=== PATIENT | female | born 1995 | race African-American/Black ===

== ENCOUNTER 2017-06-04 15:13 | Inpatient (IN) | payer MEDICAID ==
[2017-06-04] VITALS (7 sets, daily range): BP systolic 106–121; BP diastolic 64–78; PULSE 86–145; RESP 18; TEMP 98.7–98.8
[2017-06-04] MEDS ORDERED: LACTATED RINGER'S 1000 ML INJ 1,000 ML IV SCH (15:20)
[2017-06-04] MEDS ORDERED: LACTATED RINGER'S 1000 ML INJ 1,000 ML IV PRN (15:20)
[2017-06-04] MEDS ORDERED: OXYTOCIN 10 UNIT/ML AMP ONE (15:24)
[2017-06-04] MEDS ORDERED: LIDOCAINE HCL 1% 50 ML VIAL INFIL PRN (15:30)
[2017-06-04] MEDS ORDERED: ONDANSETRON HCL 4 MG/2 ML VIAL IV PUSH PRN (15:30)
[2017-06-04] MEDS ORDERED: LIDOCAINE HCL 1% 50 ML VIAL I-DERMAL PRN (15:30)
[2017-06-04] MEDS ORDERED: SODIUM CHLORID 0.9% 500 ML INJ 500 ML IV PRN (15:30)
[2017-06-04] MEDS ORDERED: MINERAL OIL 10 ML VIAL TOPICAL PRN (15:30)
[2017-06-04] MEDS ORDERED: OXYTOCIN 30 UNITS-500ML PREMIX 500 ML IV ONE (15:30)
[2017-06-04] MEDS ORDERED: CITRIC ACID-SODIUM CITRATE LIQ 30 ML UDC PO SCH (15:30)
[2017-06-04] MEDS ORDERED: SODIUM CHLOR 0.9% 1000 ML INJ 1,000 ML IV PRN (15:40)
[2017-06-04] MEDS ORDERED: ALUMINUM/MAGNESIUM/SIMETH 30 ML CUP PO PRN (16:00)
[2017-06-04] MEDS ORDERED: MEASLES, MUMPS, RUBELLA VACCINE 0.5 ML VIAL SQ ONE (16:00)
[2017-06-04] MEDS ORDERED: WITCH HAZEL 50%/GLYCERIN 12.5% 40 PAD JAR TOPICAL PRN (16:00)
[2017-06-04] MEDS ORDERED: ACETAMINOPHEN 325 MG TAB PO PRN (16:00)
[2017-06-04] MEDS ORDERED: DIPHTH/TETANUS/ACEL PERTUSSIS (BOOSTER) 0.5 ML VIAL/PFS IM ONE (16:00)
[2017-06-04] MEDS ORDERED: OXYTOCIN 30 UNITS-500ML PREMIX 500 ML IV SCH (16:00)
[2017-06-04] MEDS ORDERED: ZOLPIDEM TARTRATE 5 MG TAB PO PRN (16:00)
--- NOTE | 2017-06-04 16:14 | PD.OB.DELI ---
Weeks gestation: 39 Gest age assessed date: Jun 04, 2017 Gest age assessed time: 15:45 Pt started active labor?: Yes Active labor start date: Jun 04, 2017 Active labor start time: 15:15 Medical induction of labor?: No Artificial rupture of membrane: No Anesthesia: None Episiotomy: None Vaginal Delivery: Normal, Spontaneous, Presentation: Occiput anterior, Vertex Nuchal Cord: None Delayed cord clamping (45 sec): Yes Infant: Male Delivery date: Jun 04, 2017 Delivery time: 15:22 One Minute : 8 Five Minute : 9 Weight: 3315 Placenta: Spontaneous delivery, Intact Laceration: Vaginal laceration, 2 deg Repair: Vicryl running Estimated blood loss: 200cc Additional Information 22YO at 39/1 by 1st trimester US delivered by precipitous . There were three lacerations: a 2nd degree vaginal lac at the 6 o'clock position, and bilateral periurethral lacerations at 10 and 2 o'clock positions repaired with running vicryl. Dr Longoria delivered and was supervised by Dr Tejeda. Dr Tejeda performed laceration repair and was assisted by Dr Longoria. Lidocaine 1% was injected for anesthesia and hemostasis prior to laceration repair. Positive hemostasis was achieved. EBL 200cc. (Fadi Longoria MD R1) Additional Information see residents delivery note (Rafat Tejeda MD) Fadi Longoria MD R1 Jun 04, 2017 16:13 Rafat Tejeda MD Jun 04, 2017 18:04
--- NOTE | 2017-06-04 16:32 | PD ---
HPI Chief Complaint actively laboring Date Seen: Jun 04, 2017 Time Seen: 15:30 Travel History International Travel<30 Days: No Contact w/Intl Traveler<30Days: No Known Affected Area: No History of Present Illness HPI Ms Kumar is a at 39/1 weeks by 1st trimester US who is followed by Dr Castrejon in [place] who arrived the OB ED in precipitous labor with 10/10 labor pains. Pt states her first was uncomplicated and began as IOL then ended up as a C/S, but doesn't know why C/S occurred. States this has been without complication and notes her GTT was normal as were her labs, although she takes iron supplements and is unsure why. Pt also takes PNV. Pt denies PMHx. Denies CP, N/V/D, and DVT pain; however, is acutely SOB while elizabeth. Weeks Gestation: 39 Para: 1 : 2 Miscarriage: 0 : 0 History Past Medical History Medical History: Denies Significant Hx Obstetric History Obstetric History Previous C/S after IOL at term, reason unspecified Past Surgical History Surgical History: No Previous Surgery Family History Family History: Negative Social History Alcohol Use: No Tobacco Use: No Substance Abuse: No Allergies-Medications (Allergen,Severity, Reaction): Coded Allergies: Penicillins (Verified Allergy, Severe, rash, 06/04/17) amoxicillin (Unverified Allergy, Severe, RASH, 02/02/17) Home Meds No Active Prescriptions or Reported Meds Narrative Medication PNV Iron supplement Review of Systems General / Constitutional: No: Fever, Chills Eyes: No: Visual changes HENT: No: Headaches Cardiovascular: No: Chest Pain or Discomfort, Palpitations Respiratory: No: Short of Breath Gastrointestinal: Abdominal Pain, No: Nausea, Vomiting, Diarrhea Genitourinary: Discharge, No: Urgency, Vaginal Bleeding Musculoskeletal: Cramping Skin: No Rash Neurologic: No: Weakness, Dizziness Physical Exam Narrative GENERAL: Well-nourished, well-developed patient with severe laboring pains. SKIN: Warm and dry. No rashes or lesions. HEAD: Normocephalic and atraumatic. EYES: No scleral icterus. No injection or drainage. ENT: No nasal drainage noted. Mucous membranes pink. Airway patent. NECK: Supple, trachea midline. No lymphadenopathy. CARDIOVASCULAR: Tachycardia with regular rhythm without murmur, gallop, or rub. RESPIRATORY: Breath sounds equal bilaterally. No accessory muscle use. ABDOMEN/GI: Abdomen soft, non-tender, bowel sounds present, no rebound, no guarding Gravid to 39 weeks size Fundal Height: [-] GENITOURINARY: External Genitalia: intact and normal in appearance Cervix: - Dilatation: complete Effacement: 100 Station: 0 Presentation: vtx Membranes: intact Uterine Contractions: yes, regular 2-3 minutes FHT's: Category: [-] Baseline: [-] Reactive: [-] Variability: [-] Decels: [-] EXTREMITIES: No cyanosis or edema. BACK: Nontender without obvious deformity. No CVA tenderness. NEUROLOGICAL: Awake and alert. Motor and sensory grossly within normal limits. Five out of 5 muscle strength in all muscle groups. Normal speech. Data Data Orders Orders Admit To Inpatient (06/04/17 ) Vital Signs (Adult) .Per protocol (06/04/17 15:20) Heart (06/04/17 15:20) Amnioinfusion (06/04/17 15:20) Urinary Catheter Management .ONCE (06/04/17 15:20) Lactated Ringer's 1000 Ml Inj (Lr 1000 M (06/04/17 15:20) Lactated Ringer's 1000 Ml Inj (Lr 1000 M (06/04/17 15:20) Sodium Chlorid 0.9% 500 Ml Inj (Ns 500 M (06/04/17 15:30) Sodium Chlor 0.9% 1000 Ml Inj (Ns 1000 M (06/04/17 15:40) Lidocaine 1% Inj (50 Ml) (Xylocaine 1% I (06/04/17 15:30) Citric Acid-Sodium Citrate Liq (Bicitra (06/04/17 15:30) Ondansetron Inj (Zofran Inj) (06/04/17 15:30) Fentanyl Inj (Fentanyl Inj) (06/04/17 15:30) Fentanyl Inj (Fentanyl Inj) (06/04/17 15:30) Complete Blood Count With Diff (06/04/17 15:20) Hold Clot (06/04/17 15:20) Abo/Rh Blood Type (06/04/17 15:20) Urinalysis - C+S If Indicated (06/04/17 15:20) Drug Screen, Random Urine (06/04/17 15:20) Type And Screen (06/04/17 15:20) Rapid Plasma Regin (Rpr) W Ttr (06/04/17 15:20) No Care Spec Serology (06/04/17 15:20) Resp Oxygen Non Rebreathe Mask (06/04/17 ) ^ Epidural / Intrathecal Infus (06/04/17 15:20) Oxytocin 30 Units-500ml Premix (Pitocin (06/04/17 15:30) Lidocaine 1% Inj (50 Ml) (Xylocaine 1% I (06/04/17 15:30) Light Mineral Oil (Muri-Lube Oil) (06/04/17 15:30) Inpatient Certification (06/04/17 ) Specimen To Be Collected PRN (06/04/17 15:20) Specimen To Be Collected PRN (06/04/17 15:20) Oxytocin Inj (Pitocin Inj) (06/04/17 15:24) Vital Signs (Adult) .QSHIFT (06/04/17 15:50) Activity Oob Ad Izzy (06/04/17 15:50) Ice / Cold Pack PRN (06/04/17 15:50) Discontinue Iv (06/04/17 15:50) Sitz Bath PRN (06/04/17 15:50) ^ Massage (06/04/17 15:50) ^ Rhogam (06/04/17 15:50) Urinary Catheter Management .PRN (06/04/17 15:50) Diet Regular Basic (06/04/17 Dinner) Oxytocin 30 Units-500ml Premix (Pitocin (06/04/17 16:00) Acetaminophen (Tylenol) (06/04/17 16:00) Ibuprofen (Motrin) (06/04/17 16:00) Witch Nany-Glycerin Pad (Tucks Pads) (06/04/17 16:00) Zolpidem (Ambien) (06/04/17 16:00) Aipshlk-Emzrh-Enniiwy Inj (M-M-R Ii Inj) (06/04/17 16:00) Uiyp-Vjq-Aazamo (Booster) Inj (Boostrix (06/04/17 16:00) Al-Mag Hy-Si 40-40-4 Mg/Ml Liq (Mag-Al P (06/04/17 16:00) MDM Medical Record Reviewed: No Narrative Course / MDM 22YO at 39/1 weeks by 1st trimester US ([place] 06/10/17) and followed by Dr Castrejon arrived the ED in precipitous labor Scripts No Active Prescriptions or Reported Meds Fadi Longoria MD R1 Jun 04, 2017 16:32
--- NOTE | 2017-06-04 16:51 | HHI.HP ---
History & Physical H&P HPI Chief Complaint actively laboring Date Seen: Jun 04, 2017 Time Seen: 15:30 Travel History International Travel<30 Days: No Contact w/Intl Traveler<30Days: No Known Affected Area: No History of Present Illness HPI Ms Kumar is a at 39/1 weeks by 1st trimester US who is followed by Dr Castrejon in [place] who arrived the OB ED in precipitous labor with 10/10 labor pains. Pt states her first was uncomplicated and began as IOL then ended up as a C/S, but doesn't know why C/S occurred. States this has been without complication and notes her GTT was normal as were her labs, although she takes iron supplements and is unsure why. Pt also takes PNV. Pt denies PMHx. Denies CP, N/V/D, and DVT pain; however, is acutely SOB while elizabeth. Weeks Gestation: 39 Para: 1 : 2 Miscarriage: 0 : 0 History (Limited) History Past Medical History Medical History: Denies Significant Hx Obstetric History Obstetric History Previous C/S after IOL at term, reason unspecified Past Surgical History Surgical History: No Previous Surgery Family History Family History: Negative Social History Alcohol Use: No Tobacco Use: No Substance Abuse: No Allergies-Medications Allergies-Medications (Allergen,Severity, Reaction): Coded Allergies: Penicillins (Verified Allergy, Severe, rash, 06/04/17) amoxicillin (Unverified Allergy, Severe, RASH, 02/02/17) Home Meds No Active Prescriptions or Reported Meds Narrative Medication PNV Iron supplement ROS Review of Systems General / Constitutional: No: Fever, Chills Eyes: No: Visual changes HENT: No: Headaches Cardiovascular: No: Chest Pain or Discomfort, Palpitations Respiratory: No: Short of Breath Gastrointestinal: Abdominal Pain, No: Nausea, Vomiting, Diarrhea Genitourinary: Discharge, No: Urgency, Vaginal Bleeding Musculoskeletal: Cramping Skin: No Rash Neurologic: No: Weakness, Dizziness Physical Exam Physical Exam Narrative GENERAL: Well-nourished, well-developed patient with severe laboring pains. SKIN: Warm and dry. No rashes or lesions. HEAD: Normocephalic and atraumatic. EYES: No scleral icterus. No injection or drainage. ENT: No nasal drainage noted. Mucous membranes pink. Airway patent. NECK: Supple, trachea midline. No lymphadenopathy. CARDIOVASCULAR: Tachycardia with regular rhythm without murmur, gallop, or rub. RESPIRATORY: Breath sounds equal bilaterally. No accessory muscle use. ABDOMEN/GI: Abdomen soft, non-tender, bowel sounds present, no rebound, no guarding Gravid to 39 weeks size Fundal Height: [-] GENITOURINARY: External Genitalia: intact and normal in appearance Cervix: - Dilatation: complete Effacement: 100 Station: 0 Presentation: vtx Membranes: intact Uterine Contractions: yes, regular 2-3 minutes FHT's: Category: [-] Baseline: [-] Reactive: [-] Variability: [-] Decels: [-] EXTREMITIES: No cyanosis or edema. BACK: Nontender without obvious deformity. No CVA tenderness. NEUROLOGICAL: Awake and alert. Motor and sensory grossly within normal limits. Five out of 5 muscle strength in all muscle groups. Normal speech. Data Data Data Orders Orders Admit To Inpatient (06/04/17 ) Vital Signs (Adult) .Per protocol (06/04/17 15:20) Heart (06/04/17 15:20) Amnioinfusion (06/04/17 15:20) Urinary Catheter Management .ONCE (06/04/17 15:20) Lactated Ringer's 1000 Ml Inj (Lr 1000 M (06/04/17 15:20) Lactated Ringer's 1000 Ml Inj (Lr 1000 M (06/04/17 15:20) Sodium Chlorid 0.9% 500 Ml Inj (Ns 500 M (06/04/17 15:30) Sodium Chlor 0.9% 1000 Ml Inj (Ns 1000 M (06/04/17 15:40) Lidocaine 1% Inj (50 Ml) (Xylocaine 1% I (06/04/17 15:30) Citric Acid-Sodium Citrate Liq (Bicitra (06/04/17 15:30) Ondansetron Inj (Zofran Inj) (06/04/17 15:30) Fentanyl Inj (Fentanyl Inj) (06/04/17 15:30) Fentanyl Inj (Fentanyl Inj) (06/04/17 15:30) Complete Blood Count With Diff (06/04/17 15:20) Hold Clot (06/04/17 15:20) Abo/Rh Blood Type (06/04/17 15:20) Urinalysis - C+S If Indicated (06/04/17 15:20) Drug Screen, Random Urine (06/04/17 15:20) Type And Screen (06/04/17:20) Rapid Plasma Regin (Rpr) W Ttr (06/04/17 15:20) No Care Spec Serology (06/04/17 15:20) Resp Oxygen Non Rebreathe Mask (06/04/17 ) ^ Epidural / Intrathecal Infus (06/04/17 15:20) Oxytocin 30 Units-500ml Premix (Pitocin (06/04/17 15:30) Lidocaine 1% Inj (50 Ml) (Xylocaine 1% I (06/04/17 15:30) Light Mineral Oil (Muri-Lube Oil) (06/04/17 15:30) Inpatient Certification (06/04/17 ) Specimen To Be Collected PRN (06/04/17 15:20) Specimen To Be Collected PRN (06/04/17 15:20) Oxytocin Inj (Pitocin Inj) (06/04/17 15:24) Vital Signs (Adult) .QSHIFT (06/04/17 15:50) Activity Oob Ad Izzy (06/04/17 15:50) Ice / Cold Pack PRN (06/04/17 15:50) Discontinue Iv (06/04/17 15:50) Sitz Bath PRN (06/04/17 15:50) ^ Massage (06/04/17 15:50) ^ Rhogam (06/04/17 15:50) Urinary Catheter Management .PRN (06/04/17 15:50) Diet Regular Basic (06/04/17 Dinner) Oxytocin 30 Units-500ml Premix (Pitocin (06/04/17 16:00) Acetaminophen (Tylenol) (06/04/17 16:00) Ibuprofen (Motrin) (06/04/17 16:00) Witch Nany-Glycerin Pad (Tucks Pads) (06/04/17 16:00) Zolpidem (Ambien) (06/04/17 16:00) Lpkrqmx-Tlpqy-Jxuagfz Inj (M-M-R Ii Inj) (06/04/17 16:00) Hbyy-Ptu-Nxhivc (Booster) Inj (Boostrix (06/04/17 16:00) Al-Mag Hy-Si 40-40-4 Mg/Ml Liq (Mag-Al P (06/04/17 16:00) MDM MDM Medical Record Reviewed: No Narrative Course / MDM 22YO at 39/1 weeks by 1st trimester US ([place] 06/10/17) and followed by Dr Castrejon arrived the ED in precipitous labor Scripts No Active Prescriptions or Reported Meds Fadi Longoria MD R1 Jun 04, 2017 16:51
[2017-06-04 18:16] LABS: AUTOMATED NEUTROPHIL # 13.4 TH/MM3 (1.8-7.7); BASOPHIL % 0.2 % (0.0-2.0); EOSINOPHIL % 0.1 % (0.0-4.0); HEMATOCRIT 26.5 % (35.0-46.0); HEMO FLAGS DIFF FINAL; LYMPH % 7.3 % (9.0-44.0); LYMPHOCYTE # 1.1 TH/MM3 (1.0-4.8); MEAN CELL VOLUME 83.6 FL (80.0-100.0); MEAN CORPUSCULAR HEMOGLOBIN 28.2 PG (27.0-34.0); MEAN CORPUSCULAR HGB CONC 33.8 % (32.0-36.0); MONO % 6.7 % (0.0-8.0); NEUT % 85.7 % (16.0-70.0); PLATELET COUNT 212 TH/MM3 (150-450); RED BLOOD COUNT 3.17 MIL/MM3 (4.00-5.30); RED CELL DISTRIBUTION WIDTH 18.5 % (11.6-17.2); WHITE BLOOD COUNT 15.6 TH/MM3 (4.0-11.0)
[2017-06-04] MEDS: IBUPROFEN 800 MG TAB PO PRN (19:45)
[2017-06-04 21:15] LABS: BACTERIA, URINE RARE /hpf; BLOOD, URINE LARGE (NEG); COMMENT (UR) CULTURE INDICATED; CULTURE IF INDICATED CULTURE INDICATED; GLUCOSE,URINE NEG (NEG); KETONE, URINE NEG (NEG); MUCUS URINE FEW /lpf (OCC); NITRITE,URINE NEG (NEG); PH, URINE 6.5 (5.0-8.5); URINE COLOR LIGHT-RED (YELLW/STRAW)
[2017-06-05] MEDS: IBUPROFEN 800 MG TAB PO PRN ×2 (04:28→18:29)
[2017-06-05 08:17] VITALS: BP 106/62; PULSE 82
[2017-06-05 08:59] VITALS: RESP 18; TEMP 98
--- NOTE | 2017-06-05 09:06 | HHI.OB ---
Subjective Post Day: 1 Remarks day # 1 AFVSS overnight. Decreased lochia. Denies dysuria. No breast tenderness. Appetite good. No nausea or vomiting. Ambulating well. Denies calf pain or shortness of breath. Otherwise, she is doing well this morning and has no other complaints. Objective Vitals/I&O Vital Signs Date Time Temp Pulse Resp B/P (MAP) Pulse Ox O2 Delivery O2 Flow Rate FiO2 06/05/17 08:17 82 106/62 (77) 06/04/17 22:00 98.8 95 18 121/76 (91) 06/04/17 19:37 98.7 06/04/17 19:37 88 18 106/66 (79) 06/04/17 18:00 86 18 106/64 (78) 06/04/17 16:45 98.8 06/04/17 16:45 91 18 117/78 (91) 06/04/17 16:18 145 18 121/69 (86) 06/04/17 16:06 93 18 118/74 (89) 06/04/17 16:00 130 18 106/75 (85) Objective Remarks GENERAL: Well-nourished, well-developed patient. CARDIOVASCULAR: Regular rate and rhythm without murmurs, gallops, or rubs. RESPIRATORY: Breath sounds equal bilaterally. No accessory muscle use. ABDOMEN/GI: Abdomen soft, non-tender. Periumbilical hernia (reports its been there since she was a child) Fundus: Firm, non-tender at umbilicus. GENITOURINARY: Light to moderate bleeding. EXTREMITIES: No cyanosis or edema, non-tender, without signs of DVT. Medications and IVs Current Medications Medications (Trade) Dose Ordered Sig/Stanley Route Start Time Stop Time Status Last Admin Lactated Ringer's 1,000 ml @ 125 mls/hr Q8H IV 06/04/17 15:20 Lactated Ringer's 1,000 ml @ 3,000 mls/hr Q20M PRN IV 06/04/17 15:20 Sodium Chloride 1,000 ml @ 100 mls/hr Q10H PRN IV 06/04/17 15:40 (Xylocaine 1% Inj (50 ml)) 0.1 ml UNSCH X1 PRN I-DERMAL 06/04/17 15:30 06/07/17 15:29 (Bicitra Liq) 30 ml PHOTOCOMPOSITION KEYBOARD OPERATOR PO 06/04/17 15:30 06/08/17 15:29 (Zofran Inj) 4 mg Q6H PRN IV PUSH 06/04/17 15:30 (fentaNYL INJ) 50 mcg Q1H PRN IV PUSH 06/04/17 15:30 (fentaNYL INJ) 100 mcg Q1H PRN IV PUSH 06/04/17 15:30 (Xylocaine 1% Inj (50 ml)) 10 ml UNSCH X1 PRN INFIL 06/04/17 15:30 06/06/17 15:29 (Muri-Lube Oil) 10 ml UNSCH PRN TOPICAL 06/04/17 15:30 (Tylenol) 650 mg Q4H PRN PO 06/04/17 16:00 (Motrin) 800 mg Q8H PRN PO 06/04/17 16:00 06/05/17 04:28 (Tucks Pads) 1 applic QID PRN TOPICAL 06/04/17 16:00 (Ambien) 5 mg HS PRN PO 06/04/17 16:00 (Mag-Al Plus Susp Liq) 15 ml Q8H PRN PO 06/04/17 16:00 Assessment/Plan Assessment and Plan 22 y/o female who is PPD# 1 s/p . -Continue routine care. -Percocet and Motrin PRN pain. -Encouraged OOB. Advised pelvic rest for 6 wks. -Re: ctrl, she would like Depo Provera. -D/c in 1-2 more days. Arturo Silverman MD R1 Jun 05, 2017 09:06
[2017-06-05 20:14] VITALS: BP 102/66; PULSE 89; RESP 18; TEMP 98.5
[2017-06-06] MEDS: IBUPROFEN 800 MG TAB PO PRN (02:11)
[2017-06-06 08:05] VITALS: BP 90/52; PULSE 67; RESP 16; TEMP 98.5
--- NOTE | 2017-06-06 09:46 | HHI.OB ---
Subjective Post Day: 2 Remarks Patient is a 22-year-old delivered at 39 weeks and 1 days. Patient is day 2 after precipitous . Patient complained of some shortness of breath, dizziness, low blood pressure when she went up to go the bathroom. Patient's pain is well-controlled. Patient reports eating and drinking without any nausea or vomiting. Patient reports minimal bleeding. Patient has passed gas but no bowel movements. Patient is walking without lower extremity pain or shortness of breath. Patient reports desire for contraception and both formula- and breast-feeding. Objective Vitals/I&O Vital Signs Date Time Temp Pulse Resp B/P (MAP) Pulse Ox O2 Delivery O2 Flow Rate FiO2 06/06/17 08:05 98.5 67 16 90/52 (65) 06/06/17 03:11 18 06/05/17 20:14 98.5 89 18 102/66 (78) Objective Remarks GENERAL: Well-nourished, well-developed patient. CARDIOVASCULAR: Regular rate and rhythm without murmurs, gallops, or rubs. RESPIRATORY: Breath sounds equal bilaterally. No accessory muscle use. ABDOMEN/GI: Abdomen soft, non-tender. Periumbilical hernia (reports its been there since she was a child) Fundus: Firm, non-tender at umbilicus. GENITOURINARY: Light to moderate bleeding. EXTREMITIES: No cyanosis or edema, non-tender, without signs of DVT. Medications and IVs Current Medications Medications (Trade) Dose Ordered Sig/Stanley Route Start Time Stop Time Status Last Admin Lactated Ringer's 1,000 ml @ 125 mls/hr Q8H IV 06/04/17 15:20 Lactated Ringer's 1,000 ml @ 3,000 mls/hr Q20M PRN IV 06/04/17 15:20 Sodium Chloride 1,000 ml @ 100 mls/hr Q10H PRN IV 06/04/17 15:40 (Xylocaine 1% Inj (50 ml)) 0.1 ml UNSCH X1 PRN I-DERMAL 06/04/17 15:30 06/07/17 15:29 (Bicitra Liq) 30 ml WARP SPLITTER PO 06/04/17 15:30 06/08/17 15:29 (Zofran Inj) 4 mg Q6H PRN IV PUSH 06/04/17 15:30 (fentaNYL INJ) 50 mcg Q1H PRN IV PUSH 06/04/17 15:30 (fentaNYL INJ) 100 mcg Q1H PRN IV PUSH 06/04/17 15:30 (Xylocaine 1% Inj (50 ml)) 10 ml UNSCH X1 PRN INFIL 06/04/17 15:30 06/06/17 15:29 (Muri-Lube Oil) 10 ml UNSCH PRN TOPICAL 06/04/17 15:30 (Tylenol) 650 mg Q4H PRN PO 06/04/17 16:00 (Motrin) 800 mg Q8H PRN PO 06/04/17 16:00 06/06/17 02:11 (Tucks Pads) 1 applic QID PRN TOPICAL 06/04/17 16:00 (Ambien) 5 mg HS PRN PO 06/04/17 16:00 (Mag-Al Plus Susp Liq) 15 ml Q8H PRN PO 06/04/17 16:00 Assessment/Plan Problem List: (1) (normal spontaneous vaginal delivery) ICD Codes: O80 - Encounter for full-term uncomplicated delivery Assessment and Plan Patient is a 22-year-old delivered at 39 weeks and 1 days. Patient is day 2 after precipitous . Patient was counseled to do 6 weeks of pelvic rest. Patient was counseled to follow up in 6 weeks. Patient requested follow-up and contraception. 1. Continue routine care -Except for one episode of low blood pressure, AF VSS -Pelvic rest for 6 weeks will need follow-up appointment at that time. -Continue routine care. -Percocet and Motrin PRN pain. -Encouraged OOB. -Re: ctrl, she would like Depo Provera. 2. Patient complained of some shortness of breath, dizziness, low blood pressure when she went up to go the bathroom. -CBC today prior to discharge; plan to transfuse as needed d/w Dr. Marinelli Discharge Planning Anticipate discharge today pending results of CBC Arturo Crisostomo MD R2 Jun 06, 2017 09:46
[2017-06-06] MEDS ORDERED: ACET325T15 PO (09:50)
[2017-06-06] MEDS ORDERED: IBUP1TAB7 PO (09:50)
[2017-06-06] MEDS ORDERED: PNV11TAB PO (09:50)
--- NOTE | 2017-06-06 09:50 | HHI.DCPOC ---
Discharge Care Plan Diagnosis: (1) (normal spontaneous vaginal delivery) Report Symptoms to Your Doctor -Temperature above 100.5 degrees -Redness, of incision or excessive or foul smelling drainage -Unusual pain or calf pain -Increased vaginal bleeding -Painful or difficulty urinating -Feelings of extreme sadness or anxiety after 2 weeks Goals to Promote Your Health * To prevent worsening of your condition and complications, please follow-up with your doctor within 6 weeks. * To maintain your health at the optimal level, please follow medical recommendations. Directions to Meet Your Goals Take your medications as prescribed Follow your dietary instruction Follow activity as directed Ensure plenty of rest for recovery Drink fluids for hydration Keep your appointments as scheduled Take your immunizations and boosters as scheduled If your symptoms worsen call your PCP, if no PCP go to Urgent Care Center or Emergency Room Smoking is Dangerous to Your Health. Avoid second hand smoke Call the 24-hour crisis hotline for domestic abuse at Arturo Crisostomo MD R2 Jun 06, 2017 09:50
[2017-06-06] MEDS ORDERED: medroxyPROGESTERone ACETATE SUSP 150 MG/ML SYRINGE IM ONE (10:00)
[2017-06-06 12:01] LABS: HEMATOCRIT 24.5 % (35.0-46.0); MEAN CELL VOLUME 83.8 FL (80.0-100.0); MEAN CORPUSCULAR HEMOGLOBIN 27.8 PG (27.0-34.0); MEAN CORPUSCULAR HGB CONC 33.2 % (32.0-36.0); PLATELET COUNT 223 TH/MM3 (150-450); RED BLOOD COUNT 2.92 MIL/MM3 (4.00-5.30); RED CELL DISTRIBUTION WIDTH 18.1 % (11.6-17.2); REVIEW FLAG FINAL; WHITE BLOOD COUNT 9.5 TH/MM3 (4.0-11.0)
== END 2017-06-06 13:56 | disposition home or self-care (01) | DRG 775 ==
LOC: HOBED 15:13 → H2EB 15:16 → H1EA 20:57
PROVIDERS: ADMIT Obstetrics & Gynecology; ATTEND Obstetrics & Gynecology
PROC: 10E0XZZ Delivery of Products of Conception, External Approach (ICD-10-PCS; principal; 2017-06-04)
PROC: 0KQM0ZZ Repair Perineum Muscle, Open Approach (ICD-10-PCS; 2017-06-04)
PROC: 0HQ9XZZ Repair Perineum Skin, External Approach (ICD-10-PCS; 2017-06-04)
DX: O34.219 Maternal care for unspecified type scar from previous cesarean delivery (principal); K42.9 Umbilical hernia without obstruction or gangrene; O62.3 Precipitate labor; O70.1 Second degree perineal laceration during delivery; O71.82 Other specified trauma to perineum and vulva; Z37.0 Single live birth; Z3A.39 39 weeks gestation of pregnancy; Z88.0 Allergy status to penicillin
CPT/HCPCS: 80307; 81001; 85025; 85027; 86592; 86703; 86850; 86900; 86901; 87086; 90715; J1050; J2590